=== PATIENT | male | born 1970 | race African-American/Black ===

== ENCOUNTER 2017-12-29 23:18 | Emergency (ER) | payer SELFPAY ==
[~2017-12-29] VITALS: Ht 182.9 cm; Wt 94.0 kg
[2017-12-30] MEDS ORDERED: LIDOCAINE HCL 1% 20ML VIAL (Pyxis) INJ INFIL ONE (02:15)
[2017-12-30] MEDS ORDERED: AMPICILLIN SOD/SULBACTAM NA 3 G in SODIUM CHLORIDE 0.9% 100 ML IV SCH (02:45)
[2017-12-30] MEDS ORDERED: VANCOMYCIN 1 G PREMIX 200 ML IV SCH (02:45)
[2017-12-30 06:44] VITALS: BP 148/94
== END 2017-12-30 07:17 | disposition home or self-care (01) ==
LOC: ER 23:18
DX: K13.0 Diseases of lips (principal); I10 Essential (primary) hypertension; F12.10 Cannabis abuse, uncomplicated; F17.210 Nicotine dependence, cigarettes, uncomplicated; Z98.84 Bariatric surgery status; Z71.6 Tobacco abuse counseling
CPT/HCPCS: 96365; 96367; 99284; J0295; J3370; J3490; Z7610; J7050